=== PATIENT | female | born 1935 | race Caucasian/White ===

== ENCOUNTER 2019-10-15 10:12 | Outpatient (CLI) | payer MEDICARE, OTHER, SELFPAY ==
[2019-10-15 10:32] LABS: Basophils Percent Auto 0.4 % (0.2-1.2); Eosinophils Absolute Auto 0.1 K/mm3 (0-0.3); Hematocrit 39.8 % (37.0-47.0); Immature Granulocyte Absolute 0.01 K/mm3 (0.00-0.031); Immature Granulocyte Percent A 0.2 % (0-0.5); Lymphocytes Absolute Auto 0.75 K/mm3 (0.9-3.2); Lymphocytes Percent Auto 15.2 % (18.3-44.2); Mean Corpuscular HGB Conc 32.7 g/dl (32-36); Mean Corpuscular Hemoglobin 28.9 pg (26-34); Mean Corpuscular Volume 88.4 fl (80-100); Mean Platelet Volume 9.7 fl (7.4-10.4); Monocytes Absolute Auto 0.5 K/mm3 (0.1-0.6); Monocytes Percent Auto 9.1 % (2.6-8.5); Neutrophils Absolute Auto 3.6 K/mm3 (1.3-6.7); Neutrophils Percent Auto 73.1 % (45.5-73.1); Platelet Count Result 193 k/mm3 (150-375); White Blood Count 4.9 K/mm3 (4.5-10.0)
[2019-10-15 12:34] LABS: Alanine Aminotransferase 15 U/L (4-35); Albumin Level 4.3 g/dL (3.5-5.1); Alkaline Phosphatase 98 U/L (38-126); Aspartate Amino Transferase 23 U/L (14-36); Bilirubin,Total 0.5 mg/dL (0.2-1.3); Blood Urea Nitrogen 22 mg/dL (7-17); Calcium 9.7 mg/dL (8.4-10.2); Carbon Dioxide 25 mmol/L (22-30); Chloride 102 mmol/L (98-107); Estimated Glomerular Filt Rate > 60; Glucose 107 mg/dL (65-105); Potassium 4.1 mmol/L (3.4-5.0); Sodium 138 mmol/L (137-145)
[2019-10-17 05:59] LABS: CA 27.29 25 U/mL (<38)
== END 2019-10-15 10:13 | disposition home or self-care (01) ==
LOC: ANHLAB 10:18
PROVIDERS: PCP Family Medicine; Visit Provider Internal Medicine Hematology & Oncology
DX: C50.112 Malignant neoplasm of central portion of left female breast (principal); Z17.1 Estrogen receptor negative status [ER-]
CPT/HCPCS: 36415; 80053; 85025; 86300

== ENCOUNTER 2019-10-17 08:23 | Outpatient (CLI) | payer MEDICARE, OTHER, SELFPAY ==
--- NOTE | ~2019-10-17 | MM_ITS ---
EXAMINATION: MM screen RT diag LT w marcio HISTORY: Screening right and diagnostic left mammogram, history of left breast cancer TECHNIQUE: Craniocaudal and mediolateral oblique 3-D tomosynthesis images were obtained and synthetic 2-D images were generated. Mediolateral 3-D tomosynthesis images of the left breast are also obtaine d. CAD analysis was submitted and interpreted. COMPARISON: 10/04/2018, 08/13/2018, 02/27/2014 BREAST PARENCHYMAL COMPOSITION: There are scattered areas of fibroglandular density. FINDINGS: Scattered benign-appearing calcifications are present. There are changes of interval lumpec raúl in the left breast. There is no evidence of suspicious mass, calcification, or architectural dis tortion to suggest malignancy in either breast. IMPRESSION: 1. No mammographic evidence of malignancy. 2. Recommend routine screening mammography while the patient remains in good health. BI-RADS Category 2: Benign finding(s). Reviewed, dictated and finalized at location A. [employer] IMPRESSION: 1. No mammographic evidence of malignancy. 2. Recommend routine screening mammography while the patient remains in good he alth. BI-RADS Category 2: Benign finding(s).
== END 2019-10-17 08:24 | disposition home or self-care (01) ==
PROVIDERS: PCP Family Medicine; Visit Provider Surgery Plastic and Reconstructive Surgery
DX: Z12.31 Encounter for screening mammogram for malignant neoplasm of breast (principal); C50.112 Malignant neoplasm of central portion of left female breast; Z17.1 Estrogen receptor negative status [ER-]; Z92.21 Personal history of antineoplastic chemotherapy; Z92.3 Personal history of irradiation
CPT/HCPCS: 77063; 77065; 77067

== ENCOUNTER 2020-01-21 09:19 | Outpatient (CLI) | payer MEDICARE, OTHER, SELFPAY ==
[2020-01-21 09:31] LABS: Basophils Percent Auto 0.7 % (0.2-1.2); Eosinophils Absolute Auto 0.1 K/mm3 (0-0.3); Eosinophils Percent Auto 1.7 % (0-4.4); Hematocrit 40.8 % (37.0-47.0); Hemoglobin 13.4 g/dL (12.0-15.0); Immature Granulocyte Absolute 0.01 K/mm3 (0.00-0.031); Immature Granulocyte Percent A 0.2 % (0-0.5); Lymphocytes Absolute Auto 0.85 K/mm3 (0.9-3.2); Lymphocytes Percent Auto 20.1 % (18.3-44.2); Mean Corpuscular HGB Conc 32.8 g/dl (32-36); Mean Corpuscular Hemoglobin 29.3 pg (26-34); Mean Corpuscular Volume 89.1 fl (80-100); Mean Platelet Volume 9.6 fl (7.4-10.4); Monocytes Absolute Auto 0.4 K/mm3 (0.1-0.6); Monocytes Percent Auto 9.2 % (2.6-8.5); Neutrophils Absolute Auto 2.9 K/mm3 (1.3-6.7); Neutrophils Percent Auto 68.1 % (45.5-73.1); Platelet Count Result 213 k/mm3 (150-375); Red Blood Count 4.58 M/mm3 (4.2-5.4); Red Cell Distribution Width 13.2 % (11.5-14.5); White Blood Count 4.2 K/mm3 (4.5-10.0)
[2020-01-21 10:16] LABS: Alanine Aminotransferase 13 U/L (4-35); Albumin Level 4.5 g/dL (3.5-5.1); Alkaline Phosphatase 96 U/L (38-126); Aspartate Amino Transferase 22 U/L (14-36); Bilirubin,Total 0.4 mg/dL (0.2-1.3); Blood Urea Nitrogen 21 mg/dL (7-17); Calcium 9.6 mg/dL (8.4-10.2); Carbon Dioxide 26 mmol/L (22-30); Chloride 105 mmol/L (98-107); Estimated Glomerular Filt Rate > 60; Glucose 95 mg/dL (65-105); Potassium 4.1 mmol/L (3.4-5.0); Sodium 141 mmol/L (137-145)
[2020-01-23 05:18] LABS: CA 27.29 20 U/mL (<38)
== END 2020-01-21 09:20 | disposition home or self-care (01) ==
LOC: ANHLAB 09:21
PROVIDERS: PCP Family Medicine; Visit Provider Internal Medicine Hematology & Oncology
DX: C50.112 Malignant neoplasm of central portion of left female breast (principal)
CPT/HCPCS: 36415; 80053; 85025; 86300

== ENCOUNTER 2020-03-30 11:31 | Outpatient (CLI) | payer MEDICARE, OTHER, SELFPAY ==
--- NOTE | ~2020-03-30 | MM_ITS ---
EXAMINATION: MM diagnostic alisa LT w marcio HISTORY: . History of breast cancer TECHNIQUE: Additional 3-D tomosynthesis images of the left breast were performed and synthetic 2-D im ages were generated. CAD analysis was submitted and interpreted. COMPARISON: Comparison to multiple prior studies sequentially, with oldest reviewed study dated 02/27. BREAST PARENCHYMAL COMPOSITION: Breast composed of scattered areas of fibroglandular density FINDINGS: The left breast is stable without evidence for malignancy. There are benign left breast britany cifications and multiple tissue markers from prior biopsy. IMPRESSION: 1. Stable left mammogram without evidence for malignancy. 2. Routine yearly screening mammogram and regular clinical breast examination are recommended. BI-RADS Category 2: Benign finding(s). Reviewed, dictated and finalized at location A. IMPRESSION: 1. Stable left mammogram without evidence for malignancy. 2. Routine yearly screening mammogram and regular clinical breast examination a re recommended. BI-RADS Category 2: Benign finding(s).
== END 2020-03-30 11:32 | disposition home or self-care (01) ==
PROVIDERS: PCP Family Medicine; Visit Provider Internal Medicine Hematology & Oncology
DX: C50.112 Malignant neoplasm of central portion of left female breast (principal)
CPT/HCPCS: 77061; 77065; G0279

== ENCOUNTER 2020-04-21 09:06 | Outpatient (CLI) | payer MEDICARE, OTHER, SELFPAY ==
[2020-04-21 09:26] LABS: Basophils Percent Auto 0.8 % (0.2-1.2); Eosinophils Absolute Auto 0.1 K/mm3 (0-0.3); Eosinophils Percent Auto 1.7 % (0-4.4); Hematocrit 38.5 % (37.0-47.0); Hemoglobin 12.7 g/dL (12.0-15.0); Immature Granulocyte Absolute 0.01 K/mm3 (0.00-0.031); Immature Granulocyte Percent A 0.3 % (0-0.5); Lymphocytes Absolute Auto 0.85 K/mm3 (0.9-3.2); Lymphocytes Percent Auto 23.7 % (18.3-44.2); Mean Corpuscular Hemoglobin 29.4 pg (26-34); Mean Corpuscular Volume 89.1 fl (80-100); Mean Platelet Volume 9.7 fl (7.4-10.4); Monocytes Absolute Auto 0.3 K/mm3 (0.1-0.6); Monocytes Percent Auto 7.8 % (2.6-8.5); Neutrophils Absolute Auto 2.4 K/mm3 (1.3-6.7); Neutrophils Percent Auto 65.7 % (45.5-73.1); Platelet Count Result 198 k/mm3 (150-375); Red Blood Count 4.32 M/mm3 (4.2-5.4); Red Cell Distribution Width 12.5 % (11.5-14.5); White Blood Count 3.6 K/mm3 (4.5-10.0)
[2020-04-21 11:03] LABS: Alanine Aminotransferase 12 U/L (4-35); Albumin Level 4.3 g/dL (3.5-5.1); Alkaline Phosphatase 86 U/L (38-126); Anion Gap 9 mmol/L (8-16); Aspartate Amino Transferase 23 U/L (14-36); Bilirubin,Total 0.4 mg/dL (0.2-1.3); Blood Urea Nitrogen 21 mg/dL (7-17); Calcium 9.1 mg/dL (8.4-10.2); Carbon Dioxide 24 mmol/L (22-30); Chloride 108 mmol/L (98-107); Estimated Glomerular Filt Rate > 60; Glucose 109 mg/dL (65-105); Potassium 4.3 mmol/L (3.4-5.0); Sodium 141 mmol/L (137-145)
[2020-04-24 06:24] LABS: CA 27.29 20 U/mL (<38)
== END 2020-04-21 09:07 | disposition home or self-care (01) ==
LOC: ANHLAB 09:09
PROVIDERS: PCP Family Medicine; Visit Provider Internal Medicine Hematology & Oncology
DX: C50.112 Malignant neoplasm of central portion of left female breast (principal)
CPT/HCPCS: 36415; 80053; 85025; 86300

== ENCOUNTER 2020-05-21 08:47 | Outpatient (CLI) | payer MEDICARE, OTHER, SELFPAY ==
--- NOTE | ~2020-05-21 | MM_ITS ---
EXAMINATION: MM screening alisa RT w marcio HISTORY: Screening TECHNIQUE: Craniocaudal and mediolateral oblique 3-D tomosynthesis images were obtained and synthetic 2-D images were generated. CAD analysis was submitted and interpreted. COMPARISON: Comparison to multiple prior studies sequentially, with oldest reviewed study dated 02/27. BREAST PARENCHYMAL COMPOSITION: There are scattered areas of fibroglandular density. FINDINGS: There is no evidence of suspicious mass, calcification, or architectural distortion to sugg est malignancy in the right breast. There has been no suspicious interval change. IMPRESSION: 1. No mammographic evidence of malignancy. 2. Recommend routine screening mammography in one year. BI-RADS Category 2: Benign finding(s). Reviewed, dictated and finalized at location A.
--- NOTE | ~2020-05-21 | DEXA_ITS ---
Bone Density Report Name: Jazzy Alvarez Age: 84 Sex: Female Ethnicity: White Date of : 1935 Indication: osteopenia; parental hip fracture; height loss; cancer; Referring Provider: Holly Munson Study: Bone densitometry was performed. Exam Date: May 21, 2020 Accession number: [id number] Bone Density: Region BMD T-score Z-score Classification AP Spine (L1, L3) 1.084 0.6 3.3 Normal Femoral Neck (Left) 0.705 -1.3 1.1 Osteopenia Total Hip (Left) 0.913 -0.2 2.0 Normal Total Hip Bilateral Avg 0.900 -0.4 1.9 Normal Femoral Neck (Right) 0.700 -1.3 1.1 Osteopenia Total Hip (Right) 0.886 -0.5 1.7 Normal World Health Organization criteria for BMD impression classify patients as: Normal (T-score at or above -1.0), Osteopenia (T-score between -1.0 and -2.5), or Osteoporosis (T-score at or below -2.5). 10-year Fracture Risk(1): Major Osteoporotic Fracture 23% Hip Fracture 13% Reported Risk Factors: [place] (), Neck BMD=0.700, BMI=25.9, parental fracture (1) FRAX(R) Version 3.08. Fracture probability calculated for an untreated patient. Fracture probability may be lower if the patient has received treatment. Previous Exams: Region Exam Age BMD T-score BMD Change BMD Change Date g/cm2 vs Baseline vs Previous AP Spine(L1, L3) 05/21/2020 84 1.084 0.6 0.027(2.5%)# 0.055(5.3%)# 01/06/2012 76 1.030 0.2 -0.028(-2.7%)# -0.028(-2.7%)# 06/06/2008 72 1.058 0.4 Total Hip(Left) 05/21/2020 84 0.913 -0.2 0.034(3.9%)# 0.102(12.6%)# 01/06/2012 76 0.811 -1.1 -0.068(-7.7%)# -0.068(-7.7%)# 06/06/2008 72 0.879 -0.5 Total Hip(Right) 05/21/2020 84 0.886 -0.5 -0.042(-4.5%)# -0.044(-4.7%)# 01/06/2012 76 0.930 -0.1 0.003(0.3%)# 0.003(0.3%)# 06/06/2008 72 0.928 -0.1 *Denotes significance at 95% confidence level, LSC for AP Spine = 0.022 g/cm2, LSC for Total Hip = 0.027 g/cm2 Clinical Information Provided by Patient: Parent has had a hip fracture Has used the following medications: Vitamin D Has the following medical conditions: Cancer Patient maximum height was 65 Menopause Age: 59 Onset of menses at age 15 Number of children 3 Impression: The patient has low bone mass, based on the Left Femoral Neck T-score. The patient has an estimated ten-year risk of hip fracture of 13% and an estimated ten-year risk of major fracture of 23%, based on the WHO FRAX algorithm. The patient has r
== END 2020-05-21 08:48 | disposition home or self-care (01) ==
LOC: ANHIMG 08:50
PROVIDERS: PCP Family Medicine; Visit Provider Nurse Practitioner Adult Health
DX: Z12.31 Encounter for screening mammogram for malignant neoplasm of breast (principal); Z78.0 Asymptomatic menopausal state; M85.89 Other specified disorders of bone density and structure, multiple sites
CPT/HCPCS: 77063; 77067; 77080

== ENCOUNTER 2020-07-14 10:14 | Outpatient (CLI) | payer MEDICARE, OTHER, SELFPAY ==
[2020-07-14 10:34] LABS: Basophils Percent Auto 0.6 % (0.2-1.2); Eosinophils Absolute Auto 0.1 K/mm3 (0-0.3); Eosinophils Percent Auto 2.6 % (0-4.4); Hemoglobin 13.4 g/dL (12.0-15.0); Immature Granulocyte Absolute 0.02 K/mm3 (0.00-0.031); Immature Granulocyte Percent A 0.4 % (0-0.5); Lymphocytes Absolute Auto 0.83 K/mm3 (0.9-3.2); Lymphocytes Percent Auto 16.6 % (18.3-44.2); Mean Corpuscular HGB Conc 32.7 g/dl (32-36); Mean Corpuscular Hemoglobin 29.1 pg (26-34); Mean Corpuscular Volume 88.9 fl (80-100); Mean Platelet Volume 9.5 fl (7.4-10.4); Monocytes Absolute Auto 0.4 K/mm3 (0.1-0.6); Monocytes Percent Auto 8.4 % (2.6-8.5); Neutrophils Absolute Auto 3.6 K/mm3 (1.3-6.7); Neutrophils Percent Auto 71.4 % (45.5-73.1); Platelet Count Result 227 k/mm3 (150-375); Red Blood Count 4.61 M/mm3 (4.2-5.4); Red Cell Distribution Width 12.9 % (11.5-14.5)
[2020-07-14 12:06] LABS: Iron 91 ug/dL (37-170)
[2020-07-14 12:07] LABS: Alanine Aminotransferase 15 U/L (4-35); Albumin Level 4.4 g/dL (3.5-5.1); Alkaline Phosphatase 100 U/L (38-126); Anion Gap 11 mmol/L (8-16); Aspartate Amino Transferase 25 U/L (14-36); Bilirubin,Total 0.6 mg/dL (0.2-1.3); Blood Urea Nitrogen 21 mg/dL (7-17); Calcium 9.7 mg/dL (8.4-10.2); Carbon Dioxide 26 mmol/L (22-30); Chloride 104 mmol/L (98-107); Estimated Glomerular Filt Rate 60; Glucose 122 mg/dL (65-105); Potassium 4.1 mmol/L (3.4-5.0); Sodium 141 mmol/L (137-145)
[2020-07-14 12:22] LABS: Percent Iron Saturation 25 % (20-50)
[2020-07-17 14:21] LABS: CA 27.29 24 U/mL (<38)
== END 2020-07-14 10:15 | disposition home or self-care (01) ==
LOC: ANHLAB 10:17
PROVIDERS: PCP Family Medicine; Visit Provider Internal Medicine Hematology & Oncology
DX: C50.112 Malignant neoplasm of central portion of left female breast (principal); Z17.1 Estrogen receptor negative status [ER-]
CPT/HCPCS: 36415; 80053; 82728; 83540; 83550; 85025; 86300

== ENCOUNTER 2020-08-20 07:00 | Outpatient (NON) | payer MEDICARE, OTHER, SELFPAY ==
[2020-08-21 12:14] LABS: SARS-CoV-2 RNA PCR Negative
== END 2020-08-20 07:01 ==
LOC: ANHCOVIDDT 07:14
PROVIDERS: Visit Provider Physician Assistant
DX: R50.9 Fever, unspecified (principal); Z20.828 Contact with and (suspected) exposure to other viral communicable diseases
CPT/HCPCS: 87635; C9803; U0003

== ENCOUNTER 2020-08-22 07:54 | Outpatient (CLI) | payer MEDICARE, OTHER, SELFPAY ==
--- NOTE | ~2020-08-22 | XR_ITS ---
EXAMINATION: XR chest 2V DATE: 08/22/2020 08:26 INDICATION: Shortness of breath TECHNIQUE: PA and lateral views of the chest were obtained. COMPARISON: Chest radiograph dated 02/28/2019 FINDINGS: Mild biapical pleural-parenchymal scarring. Chronic small calcified nodule at the left upper lung zon e consistent with old granulomatous disease. New and more subtle approximately 1 cm nodular opacity i n the right midlung zone. No pleural effusion or pneumothorax. The cardiomediastinal silhouette is no rmal. Likely biopsy marker at the left breast and surgical clips at the left axilla consistent with p rior axillary lymph node dissection. IMPRESSION: 1. New small nodular opacity in the right midlung zone which could be infectious, inflammatory or mal ignant in etiology. Given history of prior breast cancer would recommend chest CT for further evaluat ion. Reviewed, dictated and finalized at location A. [employer] IMPRESSION: 1. New small nodular opacity in the right midlung zone which could be infectiou s, inflammatory or malignant in etiology. Given history of prior breast cancer would recommend chest CT for further evaluation.
== END 2020-08-22 07:55 | disposition home or self-care (01) ==
PROVIDERS: PCP Family Medicine; Visit Provider Family Medicine
DX: R06.02 Shortness of breath (principal); R07.9 Chest pain, unspecified; R92.8 Other abnormal and inconclusive findings on diagnostic imaging of breast
CPT/HCPCS: 71046

== ENCOUNTER 2020-08-23 08:11 | Emergency (ER) | payer MEDICARE, OTHER, SELFPAY ==
--- NOTE | ~2020-08-23 | XR_ITS ---
EXAMINATION: XR chest 1V portable DATE: 08/23/2020 09:45 INDICATION: Cardiac arrest TECHNIQUE: frontal view of the chest was obtained. COMPARISON: Chest radiograph dated 08/22/2020 FINDINGS: Endotracheal tube with tip in the right mainstem bronchus. Right internal jugular central venous cath eter with distal tip near the superior cavoatrial junction. New airspace opacities in the bilateral l ower lung zones, left greater than right. Calcified nodules in the right midlung consistent with old granulomatous disease. No pleural effusion or pneumothorax. Heart size is normal. Surgical clips the left axilla and biopsy marker at the left breast. IMPRESSION: 1. Endotracheal tube in the right mainstem bronchus. 2. New opacities in the bilateral lower lung zones, left greater than right which could represent ate lectasis and/or pneumonia Reviewed, dictated and finalized at location A. S MARKETING IMPRESSION: 1. Endotracheal tube in the right mainstem bronchus. 2. New opacities in the bilateral lower lung zones, left greater than right whi ch could represent atelectasis and/or pneumonia
[2020-08-23 08:08] VITALS: BP 138/76; PULSE 126; RESP 24; TEMP 35.6; O2SAT 89
--- NOTE | 2020-08-23 08:09 | ED.SOB ---
HPI - SOB/Dyspnea General Chief Complaint: Shortness of Breath/Dyspnea Stated Complaint: sob/weakness Source: patient and EMS Mode of arrival: EMS Limitations: clinical condition History of Present Illness HPI Narrative: Patient is an 84-year-old female with a history of breast cancer, hypertension who presents to the emergency department for evaluation of shortness of breath. Patient reportedly collapsed in the shower this morning, called EMS and at the time of arrival she was hypoxic with oxygen saturation 70% on room air, altered, weak. Patient was tachypneic and struggling to breathe. Patient was brought to our facility on CPAP, continues to be hypoxic with oxygen saturation 40% with a good waveform. She is somnolent but arousable, unable to converse in more than 1-2 word sentences. Per family, patient has no history of COPD or asthma. She had recently been reporting shortness of breath and flank pain and was seen by her primary care physician who obtained a chest x-ray and a Covid swab which was negative. Patient has no history of PE per family. Related Data Home Medications Medication Instructions Recorded Confirmed potassium chloride 10 mEq ea PO 07/20/20 07/30/20 tablet,extended release Allergies Allergy/AdvReac Type Severity Reaction Status Date / Time levofloxacin Allergy Other Verified 08/20/20 09:32 Review of Systems Review of Systems: ROS unobtainable: Yes unobtainable due to medical condition PMFSH Past Medical History Medical History Essential (primary) hypertension Hyperlipidemia, unspecified Insomnia Malignant neoplasm of left female breast Mobitz type I Wenckebach atrioventricular block Vitamin B12 deficiency Vitamin D deficiency Family History Family History Father Hypertension Family history of premature coronary heart disease Mother Hypertension Social History Social History Smoking status: Never smoker Second hand tobacco smoke exposure: No Alcohol intake: never Exam Narrative: Exam Narrative: GENERAL: Somnolent but arousable, ill-appearing HEAD: Normocephalic, atraumatic. EYES: PERRLA and EOMI. ENT: Nares clear, no rhinorrhea or epistaxis. Mucous membranes dry NECK: Supple. CHEST: Koby respiratory distress, hypoxic, tachypneic, no wheezing, no crackles HEART: Tachycardic rate, no murmur ABDOMEN:Non distended, non tender EXTREMITIES: Normal range of motion. No edema. SKIN: Pale, cool, mottled NEURO:No focal deficits. Course Vital Signs Vital signs: Vital Signs Temperature 35.6 C L 08/23/20 08:08 Pulse Rate 126 H 08/23/20 08:08 Respiratory Rate 24 H 08/23/20 08:08 Blood Pressure 138/76 08/23/20 08:08 Pulse Oximetry 89 L 08/23/20 08:08 Temperature 35.6 C L 08/23/20 08:08 Pulse Rate 128 H 08/23/20 08:22 Respiratory Rate 24 H 08/23/20 08:08 Blood Pressure 138/76 08/23/20 08:08 Pulse Oximetry 89 L 08/23/20 08:08 Procedures Central Line Placement Right IJ: Central Line Date: 08/23/20 Central Line Time: 09:00 Performed Emergently - Given emergent patient condition, temporal constraints may have precluded informed consent.: Yes Time Out Performed: No Patient Placed on Monitor/Pulse Ox: Yes Max. Sterile Barrier Technique: hand hygiene Emergently Placed, Full Sterile: prep not done Technique: US-Guided Ultrasound Used for Placement: Yes Central Line Lumen Inserted: triple Post Procedure: sutured in place, good blood return, all ports aspirated, flushed, capped and sterile dressing applied Post Procedure X-Ray: tip of catheter in good position and no pneumothorax seen Intubation Intubation #1: Intubation Date: 08/23/20 Intubation Time: 08:30 Time out performed: Yes
--- NOTE | 2020-08-23 08:19 | ECG_ITS ---
Measurements Intervals [place] Rate: 127 P: 43 DE: 140 QRS: 51 QRSD: 132 T: -16 QT: 328 QTc: 477 Interpretive Statements SINUS TACHYCARDIA INTRAVENTRICULAR CONDUCTION DELAY BASELINE ARTIFACT- I, II, III, AVR, AVL, AVF, V1-V6 ABNORMAL ECG Electronically Signed On 08-23-2020 9:31:40 EP TECH by Finesse Perry D.O.
[2020-08-23 08:22] VITALS: PULSE 128
[2020-08-23 08:27] LABS: Alveolar/Arterial O2 Gradient 626.7 mmHg; Base Excess ABG -19.9 mEq/l (+/-2.0); Device NON-INVASIVE VENT; Fractional Inspired Oxygen 100 %; HCO3 ABG 10.5 mEq/l (22.0-26.0); Oxygen Content ABG 9.8 %vol (16.0-22.0); Oxygen Saturation ABG 58.7 % (95.0-100.0); PCO2 ABG 42.1 mmHg (35.0-45.0); PO2 ABG 44.2 mmHg (80.0-100.0); PO2 FiO2 Ratio Arterial Blood 0.44 %; Site Drawn RIGHT BRACHIAL; Total Hemoglobin 12.6 g/dL (12.0-18.0); pH ABG 7.016 (7.350-7.450)
[2020-08-23 08:28] LABS: Non-Invasive Expiratory Pressure 5 CMH2O; Non-Invasive Inspiratory Pressure 10 CMH2O; Non-Invasive Vent Rate 4 /MIN
--- NOTE | 2020-08-23 09:16 | ECG_ITS ---
Measurements Intervals [place] Rate: 125 P: ID: 0 QRS: 34 QRSD: 142 T: 1 QT: 404 QTc: 584 Interpretive Statements SINUS TACHYCARDIA RIGHT BUNDLE BRANCH BLOCK INFERIOR INFARCT, AGE INDETERMINATE BASELINE ARTIFACT- II, III, V5 ABNORMAL ECG Electronically Signed On 08-23-2020 13:47:30 [employer] by Finesse Perry D.O.
[2020-08-23 09:42] LABS: Basophils Percent Auto 0.5 % (0.2-1.2); Eosinophils Absolute Auto 0.1 K/mm3 (0-0.3); Eosinophils Percent Auto 2.2 % (0-4.4); Hematocrit 32.3 % (37.0-47.0); Hemoglobin 9.6 g/dL (12.0-15.0); Immature Granulocyte Absolute 0.12 K/mm3 (0.00-0.031); Immature Platelet Fraction Pct 3.8 % (0.9-11.2); Lymphocytes Absolute Auto 2.86 K/mm3 (0.9-3.2); Lymphocytes Percent Auto 48.6 % (18.3-44.2); Mean Corpuscular HGB Conc 29.7 g/dl (32-36); Mean Corpuscular Hemoglobin 28.9 pg (26-34); Mean Corpuscular Volume 97.3 fl (80-100); Mean Platelet Volume 10.1 fl (7.4-10.4); Monocytes Absolute Auto 0.2 K/mm3 (0.1-0.6); Monocytes Percent Auto 3.6 % (2.6-8.5); Neutrophils Absolute Auto 2.5 K/mm3 (1.3-6.7); Neutrophils Percent Auto 43.1 % (45.5-73.1); Nucleated Red Blood Cells Perc 0.3 % (0.0-0.2); Platelet Count Result 84 k/mm3 (150-375); Red Blood Count 3.32 M/mm3 (4.2-5.4); White Blood Count 5.9 K/mm3 (4.5-10.0)
[2020-08-23 09:47] LABS: Alanine Aminotransferase 262 U/L (4-35); Alkaline Phosphatase 85 U/L (38-126); Anion Gap 23 mmol/L (8-16); Aspartate Amino Transferase 464 U/L (14-36); Bilirubin,Total 0.4 mg/dL (0.2-1.3); Blood Urea Nitrogen 26 mg/dL (7-17); Calcium 8.5 mg/dL (8.4-10.2); Carbon Dioxide 11 mmol/L (22-30); Chloride 108 mmol/L (98-107); Estimated Glomerular Filt Rate 39; Glucose 349 mg/dL (65-105); Potassium 4.3 mmol/L (3.4-5.0); Sodium 142 mmol/L (137-145)
[2020-08-23 09:50] LABS: INR 2.6; Prothrombin Time 28.7 Seconds (11.1-14.7)
[2020-08-23 09:51] LABS: NT Pro B Type Natriuretic Pept 3540 PG/ML (5-100)
[2020-08-23 09:52] LABS: Partial Thromboplastin Time 97.9 SECONDS (22.3-36.8)
[2020-08-23 09:54] LABS: Atypical Lymphocytes Present; Hypochromasia 1+ (NORMAL); Platelet Estimate Adequate (Adequate)
[2020-08-23 10:02] LABS: Lactic Acid Reflex 14.3 mmol/L (0.7-2.1)
[2020-08-23 10:18] LABS: Troponin I 0.027 ng/mL (0.000-0.034)
[2020-08-23 12:38] LABS: Reflex Lactic Acid Yes or No Add Lactic
[2020-08-24 07:24] LABS: Glucose Point of Care 322 (65-105)
== END 2020-08-23 11:33 | disposition expired ==
PROVIDERS: Emergency Provider Emergency Medicine; PCP Family Medicine
DX: J96.91 Respiratory failure, unspecified with hypoxia (principal); I46.9 Cardiac arrest, cause unspecified; Z85.3 Personal history of malignant neoplasm of breast; I10 Essential (primary) hypertension; E78.5 Hyperlipidemia, unspecified; E55.9 Vitamin D deficiency, unspecified; E53.8 Deficiency of other specified B group vitamins; R00.0 Tachycardia, unspecified; I45.9 Conduction disorder, unspecified; I45.10 Unspecified right bundle-branch block; R94.31 Abnormal electrocardiogram [ECG] [EKG]; R91.8 Other nonspecific abnormal finding of lung field
CPT/HCPCS: 31500; 36415; 36556; 36600; 36680; 71045; 80053; 82805; 83605; 83880; 84484; 85025; 85055; 85380; 85610; 85730; 86140; 92950; 93005; 99285; C1751; J0171; J2997; J7030